=== PATIENT | male | born 1990 | race Caucasian/White ===

== ENCOUNTER 2021-12-23 20:09 | Inpatient (IN) | payer MEDICAID ==
[~2021-12-23] VITALS: Ht 170.2 cm; Wt 68.9 kg
[2021-12-23 20:09] VITALS: BP 148/88
--- NOTE | 2021-12-23 20:13 | NUR ---
[facility] TO ER BED 05.
[2021-12-23] MEDS ORDERED: ALBUTEROL 0.083% 2.5 MG/3 ML NEBU INH ONE (20:40)
[2021-12-23] MEDS ORDERED: methylPREDNISolone SS 125 MG/2 ML VIAL IVP ONE (20:40)
[2021-12-23] MEDS ORDERED: MAG SULF 2000 MG/WATER PREMIX 50 ML IV ONE (20:40)
[2021-12-23 21:02] LABS: BASOPHILS % (AUTO) 0.6 % (0.0-2.0); EOSINOPHILS # (AUTO) 0.6 K/uL (0-0.4); EOSINOPHILS % (AUTO) 7.7 % (0.0-4.0); HEMATOCRIT 46.6 % (36-52); HEMOGLOBIN 15.5 g/dL (12.0-18.0); LYMPHOCYTES # (AUTO) 1.8 K/uL (2.0-11.5); MEAN CORPUSCULAR HEMOGLOBIN 32 pg (27-31); MEAN CORPUSCULAR HGB CONC 33 g/dL (33-37); MEAN CORPUSCULAR VOLUME 94.8 fL (80-94); MONOCYTES # (AUTO) 0.7 K/uL (0.8-1.0); MONOCYTES % (AUTO) 9.3 % (1.7-9.3); NEUTROPHILS # (AUTO) 4.2 K/uL (1.8-7.7); NEUTROPHILS % (AUTO) 57.4 % (42.2-75.2); PLATELET COUNT (AUTO) 307 K/uL (140-450); RED BLOOD CELL COUNT(AUTO) 4.92 MIL/uL (4.20-6.10); RED CELL DISTRIBUTION WIDTH 13.7 % (11.6-13.7); WHITE BLOOD COUNT (AUTO) 7.2 K/uL (4.8-10.8)
[2021-12-23] MEDS ORDERED: LEVALBUTEROL 1.25 MG/0.5 ML NEBU INH ONE ×5 (21:05→22:11)
--- NOTE | 2021-12-23 21:11 | NUR ---
COVID AND FLU SWABS COLLECTED AND SENT TO LAB
[2021-12-23 21:24] LABS: ALBUMIN 3.8 g/dL (3.4-5.0); ANION GAP 10.6 (8-16); CARBON DIOXIDE 32.1 mmol/L (21-32); POTASSIUM 3.7 mmol/L (3.5-5.1); TOTAL BILIRUBIN 0.1 mg/dL (0.0-1.0)
--- NOTE | 2021-12-23 21:24 | NUR ---
31YR OLD MALE BIB EMS C/O ASTHMA EXCERBATION. PT HAS HX OF ASTHMA. SX STARTED X1 DAY AGO. PT IS A&OX4 HOB ELEVATED. RESP EVEN AND UNLABORED. 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 SP02 97% 2L NC. SKIN WARM AND DRY . DENIES CP IS SOB CURRENTLY. RT AT BEDSIDE. NKDA ASTHMA
[2021-12-23] MEDS ORDERED: NACL 0.9% 1,000 ML IV ONE (22:05)
--- NOTE | 2021-12-23 22:59 | NUR ---
PT ON A NEB TX . RT AT BEDSIDE. PT IS ADMITTED TO TELE. BED ASSIG GIVEN WILL TRANSPORT PT AFTER TX
[2021-12-23] MEDS ORDERED: PRON INH (23:09)
--- NOTE | 2021-12-23 23:21 | NUR ---
PATIENT BELONGINGS AND MED RECONCILE DONE
--- NOTE | 2021-12-24 00:09 | NUR ---
ADMISSION NOTE FOR 31 YEAR OLD MALE PATIENT UNDER THE CARE OF DOCTOR JAMAL CARTER FOR ASTHMA EXACERBATION.
--- NOTE | 2021-12-24 00:11 | NUR ---
Chart checked and completed.
--- NOTE | 2021-12-24 00:11 | NUR ---
Patient will be admitted to care of DR WALLER . Admited to TELE. Will go to [id number]. Belongings list completed. Report to IRVIN WU.
[2021-12-24] MEDS ORDERED: ACETAMINOPHEN 325 MG TAB PO PRN (00:55)
[2021-12-24] MEDS ORDERED: MORPHINE SULFATE 2 MG/ML SYR IVP PRN (00:55)
[2021-12-24] MEDS ORDERED: ONDANSETRON 4 MG/2 ML VIAL IM/IVP PRN (00:55)
[2021-12-24] MEDS ORDERED: SODIUM PHOS / POTASSIUM PHOS 1 PKT PDR PO PRN (00:55)
[2021-12-24] MEDS ORDERED: MAGNESIUM OXIDE 400 MG TAB PO PRN (00:55)
[2021-12-24] MEDS ORDERED: DOCUSATE SODIUM 100 MG GELCAP PO PRN (00:55)
[2021-12-24] MEDS ORDERED: HYDROcodone/APAP 5/325 MG 1 TAB TAB PO PRN (00:55)
[2021-12-24] MEDS ORDERED: POTASSIUM CHLORIDE 10 MEQ TABER PO PRN (00:55)
[2021-12-24] MEDS ORDERED: ALBUTEROL SULFATE/IPRATROPIU 3 ML SOL IH PRN ×2 (00:55→01:20)
[2021-12-24 02:00] VITALS: BP 108/67
[2021-12-24] MEDS: ALBUTEROL SULFATE/IPRATROPIU 3 ML SOL IH SCH ×5 (03:34→23:47)
[2021-12-24 04:00] VITALS: BP 120/70
[2021-12-24 06:49] LABS: BARBITURATE, URINE NEGATIVE ng/ml (NEG <=200); BENZODIAZEPINE, URINE NEGATIVE ng/mL (NEG <=200); CANNABINOID, URINE NEGATIVE ng/mL (NEG <=50); COCAINE, URINE NEGATIVE ng/mL (NEG <=300); OPIATE, URINE NEGATIVE ng/mL (NEG <=2000); PHENCYCLIDINE SCREEN,URINE NEGATIVE ng/mL (NEG <=25)
[2021-12-24] MEDS ORDERED: ALBUTEROL SULFATE/IPRATROPIU 3 ML SOL IH SCH (07:00)
--- NOTE | 2021-12-24 07:10 | NUR ---
SAW PT DURING ROUNDING. NO DISTRESS NOTED PT HAD EXP WHEEZES. GAVE BREATHING TX. PT TOLERATED WELL. WILL CONTINUE TO MONITOR. PT STATED HE IS DOING A LOT BETTER TODAY.
[2021-12-24 08:10] LABS: MAGNESIUM 1.8 mg/dL (1.8-2.4)
[2021-12-24] MEDS: LORATADINE 10 MG TAB PO SCH (08:19)
[2021-12-24] MEDS: PANTOPRAZOLE 40 MG TABEC PO SCH (08:20)
[2021-12-24 08:23] LABS: PHOSPHORUS 0.9 mg/dL (2.5-4.9)
--- NOTE | 2021-12-24 09:24 | NUR ---
PATIENT HAS BEEN SCREENED AND CATEGORIZED LOW NUTRITION RISK. PATIENT WILL BE SEEN WITHIN 7 DAYS OF ADMISSION. 12/30/21 REVIEWED BY BETSY RAVI RD Addendum: 12/25/21 at [address] FNS CONSULT RECEIVED FOR KAYLEEN 12 OR LOWER: NOT APPLICABLE
[2021-12-24 10:26] VITALS: BP 119/69
--- NOTE | 2021-12-24 13:04 | NUR ---
DC PLANNING SW MET WITH PT AT BEDSIDE TO COMPLETE ASSESSMENT. PT RESIDES IN A GROUND FLOOR APT ALONE AT THE ADDRESS LISTED ON FILE. PT IDENTIFIED AMANDA GUTIERREZ, FRIEND,[phone] EMERGENCY CONTACT. PT DECLINED TO ADD ADDITIONAL EMERGENCY CONTACT. PT REPORTS MEETING WITH PCP NEEDED, LAST VISIT; 1 YR AGO. PT DENIES TAKING MEDIATION AT THIS TIME HOWEVER, REPORTS USE OF INHALER, WHEN NEEDED. PT DENIES BARRIERS IN ACCESS TO NEEDED MEDICATIONS AND REPORTS RECEIVING MEDICATION FROM [facility] ON [address] IN [place], WHEN NEEDED. PT REPORTS BEING INDEPENDENT IN ALL ACTIVITIES AND DENIES USE OF DME. PT DENIES MH/SA HX. 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 PT REPORTS DC PLAN IS TO RETURN HOME WITH FAMILY PROVIDING TRANSPORTATION, WHEN MEDICALLY STABLE. PT DENIES HX OF HH SERVICES, DIABETES, DIALYSIS TX. Addendum: 12/24/21 at 1305 by Armida Gill SS Amended: Links added.
[2021-12-24] MEDS ORDERED: SODIUM PHOS / POTASSIUM PHOS 1 PKT PDR PO SCH (13:57)
[2021-12-24] MEDS: SERTRALINE 50 MG TAB PO SCH (14:00)
[2021-12-24 16:00] VITALS: BP 116/71
--- NOTE | 2021-12-24 19:10 | NUR ---
RECEIVED BEDSIDE REPORT FROM DAY SHIFT RN FOR CONTINUITY OF CARE. PT IS AAOX4. PT IS ON NC 2L. PT ON REGULAR DIET. PT HAS RIGHT AC 22 GAUGE SALINE LOCK. PT IS AMBULATORY. CALL LIGHT WITHIN REACH. PLAN OF CARE DISCUSSED. WILL CONTINUE TO MONITOR THE PT.
[2021-12-24 20:00] VITALS: BP 115/64
[2021-12-25] VITALS: BP 116/69
--- NOTE | 2021-12-25 01:25 | NUR ---
PT IS SLEEPING COMFORTABLY IN BED. PT IS NOT IN ANY ACUTE DISTRESS. BREATHING EVEN AND UNLABORED. WILL CONTINUE TO MONITOR THE PT.
--- NOTE | 2021-12-25 02:04 | NUR ---
OBSERVED PT. PT IS SLEEPING WITH NO ACUTE DISTRESS. VISIBLE RISE AND CHEST FALL. WILL CONTINUE TO MONITOR THE PT.
[2021-12-25 04:00] VITALS: BP 116/77
--- NOTE | 2021-12-25 04:10 | NUR ---
VITAL SIGNS TAKEN AND STABLE. PT REMOVED NC BECAUSE IT WAS MAKING HIS NOSE ITCH. PT IS SATING 94%. WILL CONTINUE TO MONITOR THE PT.
[2021-12-25] MEDS: ALBUTEROL SULFATE/IPRATROPIU 3 ML SOL IH SCH ×2 (05:38→07:08)
--- NOTE | 2021-12-25 07:28 | NUR ---
ENDORSED PT TO DAY SHIFT RN FOR CONTINUITY OF CARE. PT IS STABLE.
--- NOTE | 2021-12-25 07:30 | NUR ---
RECEIVED FROM REHAB RN NURSE FOR CONTINUITY OF CARE. PT IS AOX4 ABLE TO MAKE NEEDS KNOWN. RESPIRATIONS EVEN AND UNLABORED. ON ROOM AIR AND NO DISTRESS NOTED. SKIN IS WARM, DRY, AND INTACT. IV SITE INTACT AND PATENT. SALINE LOCKED. DENIES PAIN AT MOMENT. PLAN OF CARE DISCUSSED. SAFETY PRECAUTIONS IN PLACE. CALL LIGHT WITHIN REACH. WILL CONTINUE TO MONITOR. Addendum: 12/25/21 at 1537 by Sohail Drummond RN RN ON 2L NC O2 SATURATION AT 96%.
[2021-12-25 07:37] LABS: BASOPHILS % (AUTO) 0.4 % (0.0-2.0); EOSINOPHILS # (AUTO) 0.3 K/uL (0-0.4); EOSINOPHILS % (AUTO) 2.6 % (0.0-4.0); HEMATOCRIT 42.8 % (36-52); HEMOGLOBIN 14.1 g/dL (12.0-18.0); LYMPHOCYTES # (AUTO) 2.8 K/uL (2.0-11.5); LYMPHOCYTES % (AUTO) 23.7 % (20.5-51.1); MEAN CORPUSCULAR HEMOGLOBIN 32 pg (27-31); MEAN CORPUSCULAR HGB CONC 33 g/dL (33-37); MEAN CORPUSCULAR VOLUME 95.3 fL (80-94); MONOCYTES # (AUTO) 0.9 K/uL (0.8-1.0); MONOCYTES % (AUTO) 7.2 % (1.7-9.3); NEUTROPHILS # (AUTO) 7.9 K/uL (1.8-7.7); NEUTROPHILS % (AUTO) 66.1 % (42.2-75.2); PLATELET COUNT (AUTO) 317 K/uL (140-450); RED BLOOD CELL COUNT(AUTO) 4.49 MIL/uL (4.20-6.10); WHITE BLOOD COUNT (AUTO) 11.9 K/uL (4.8-10.8)
[2021-12-25 07:57] LABS: ANION GAP 10.7 (8-16); CARBON DIOXIDE 29.7 mmol/L (21-32); CREATININE 0.9 mg/dL (0.6-1.3); POTASSIUM 3.4 mmol/L (3.5-5.1)
[2021-12-25 08:00] VITALS: BP 118/74
[2021-12-25] MEDS: PANTOPRAZOLE 40 MG TABEC PO SCH (08:50)
[2021-12-25] MEDS: SERTRALINE 50 MG TAB PO SCH (08:51)
[2021-12-25] MEDS: LORATADINE 10 MG TAB PO SCH (08:51)
--- NOTE | 2021-12-25 09:45 | NUR ---
ALL SCHEDULED MEDS GIVEN. PT STABLE NO DISTRESS NOTED. WILL CONTINUE TO MONITOR.
--- NOTE | 2021-12-25 11:45 | NUR ---
CHECKED ON PATIENT. PT IS STABLE. NO DISTRESS NOTED. WILL CONTINUE TO MONITOR.
[2021-12-25 12:00] VITALS: BP 110/70
[2021-12-25] MEDS ORDERED: PRED20TA5 PO (12:54)
[2021-12-25] MEDS ORDERED: MONT10TA35 PO (12:54)
[2021-12-25] MEDS ORDERED: SERT-515 PO (12:54)
[2021-12-25] MEDS ORDERED: FLUT1DSK2 IH (12:54)
[2021-12-25] MEDS ORDERED: ALBU0.0912 IH (12:54)
[2021-12-25] MEDS ORDERED: LORA10TA19 PO (12:54)
[2021-12-25 14:33] VITALS: BP 110/70
--- NOTE | 2021-12-25 15:15 | NUR ---
ENDORSED DISCHARGE INSTRUCTIONS TO PATIENT. PT VERBALIZED UNDERSTANDING AND SIGNED DISCHARGED FORMS.
--- NOTE | 2021-12-25 15:30 | NUR ---
DISCHARGED OFF THE UNIT. IV CATHETER AND ID BAND REMOVED. PT ESCORTED TO FRONT LOBBY. PT WAS STABLE PRIOR TO DISCHARGE
[2021-12-26] MEDS ORDERED: methylPREDNISolone SS 40 MG/ML VIAL IVP SCH (05:00)
== END 2021-12-25 15:43 | disposition home or self-care (01) | DRG 133 ==
LOC: MED 20:09 → MTU 22:42
PROVIDERS: ADMIT Hospitalist; ATTEND Hospitalist
DX: J96.01 Acute respiratory failure with hypoxia (principal); E87.3 Alkalosis; E83.39 Other disorders of phosphorus metabolism; J45.901 Unspecified asthma with (acute) exacerbation; Z20.822 Contact with and (suspected) exposure to COVID-19; I10 Essential (primary) hypertension
CPT/HCPCS: 36415; 71045; 80048; 80053; 80305; 83735; 84100; 85025; 87081; 92526; 94640; 94644; 96365; 96366; 96375; 99285; J2930; J3475; J7612; J7613; Q0092

== ENCOUNTER 2022-01-13 23:05 | Observation (INO) | payer MEDICAID ==
[~2022-01-13] VITALS: Ht 170.2 cm; Wt 67.1 kg
[~2022-01-13 23:05] MED LIST: ALBU0.0912 IH; FLUT1DSK2 IH; LORA10TA19 PO; MONT10TA35 PO; PRED20TA5 PO; PRON INH; SERT-515 PO
[2022-01-13 23:09] VITALS: BP 120/70
--- NOTE | 2022-01-13 23:13 | NUR ---
TO LOBBY A/W BED AMBULATORY
--- NOTE | 2022-01-13 23:18 | NUR ---
pt to chair A
[2022-01-13] MEDS ORDERED: predniSONE 20 MG TAB PO ONE (23:25)
[2022-01-13] MEDS ORDERED: ALBUTEROL SULFATE/IPRATROPIU 3 ML SOL IH ONE (23:25)
[2022-01-13] MEDS ORDERED: ALBUTEROL 0.083% 2.5 MG/3 ML NEBU INH ONE (23:55)
[2022-01-14] MEDS ORDERED: ALBUTEROL 0.083% 2.5 MG/3 ML NEBU INH ONE (00:15)
--- NOTE | 2022-01-14 00:36 | NUR ---
PT TO BED #11
--- NOTE | 2022-01-14 00:46 | NUR ---
RT with patient performing breathing treatment.
[2022-01-14] MEDS ORDERED: methylPREDNISolone SS 125 MG in WATER STERILE 2 ML IV SCH (01:20)
[2022-01-14] MEDS ORDERED: WATER STERILE 10 ML MC ONE (01:40)
[2022-01-14] MEDS ORDERED: methylPREDNISolone SS 125 MG/2 ML VIAL ONE (01:40)
--- NOTE | 2022-01-14 01:46 | NUR ---
PT SITTING UP RESTING IN BED ON BEDSIDE SITE TECHNICIAN. RESP EVEN AND UNLABORED. PT SPEAKING IN FULL SENTENCES. NO DISTRESS NOTED. SP02 94% RA.
--- NOTE | 2022-01-14 01:48 | NUR ---
COVID SWAB COLLECTED AND SENT TO LAB
--- NOTE | 2022-01-14 01:50 | NUR ---
20G IV CATH PLACED R AC LABS OBTAINED AT BEDSIDE
--- NOTE | 2022-01-14 01:55 | NUR ---
Patient lying in bed, A/Ox4, chest rise and fall symmetrical, no c/o pain or s/s of distress.
--- NOTE | 2022-01-14 03:55 | NUR ---
Patient lying in bed, A/Ox4, chest rise and fall symmetrical, no c/o pain or s/s of distress.
--- NOTE | 2022-01-14 04:05 | NUR ---
Patient lying in bed, A/Ox4, chest rise and fall symmetrical, no c/o pain or s/s of distress.
--- NOTE | 2022-01-14 06:30 | NUR ---
Patient lying in bed, A/Ox4, chest rise and fall symmetrical, no c/o pain or s/s of distress.
[2022-01-14] MEDS ORDERED: ALBUTEROL SULFATE/IPRATROPIU 3 ML SOL IH SCH (07:00)
--- NOTE | 2022-01-14 07:15 | NUR ---
Change of shift report given to AM shift nurse Sarah WU. AM shift nurse Sarah RN verbalized understanding of report, no further questions.
[2022-01-14] MEDS ORDERED: ACETAMINOPHEN 325 MG TAB PO PRN (10:50)
[2022-01-14] MEDS ORDERED: ALBUTEROL SULFATE/IPRATROPIU 3 ML SOL IH PRN (10:50)
[2022-01-14] MEDS ORDERED: ONDANSETRON 4 MG/2 ML VIAL IVP PRN (10:50)
[2022-01-14] MEDS ORDERED: HYDROcodone/APAP 7.5/325 MG 1 TAB PO PRN (10:50)
[2022-01-14] MEDS: ALBUTEROL SULFATE/IPRATROPIU 3 ML SOL IH SCH ×2 (10:57→20:01)
[2022-01-14] MEDS ORDERED: ALBUTEROL 0.083% 2.5 MG/3 ML NEBU INH PRN (11:25)
[2022-01-14 11:43] LABS: BASOPHILS % (AUTO) 0.1 % (0.0-2.0); HEMATOCRIT 43.7 % (36-52); HEMOGLOBIN 14.9 g/dL (12.0-18.0); LYMPHOCYTES # (AUTO) 0.9 K/uL (2.0-11.5); LYMPHOCYTES % (AUTO) 8.4 % (20.5-51.1); MEAN CORPUSCULAR HEMOGLOBIN 32 pg (27-31); MEAN CORPUSCULAR HGB CONC 34 g/dL (33-37); MEAN CORPUSCULAR VOLUME 94.4 fL (80-94); MONOCYTES # (AUTO) 0.3 K/uL (0.8-1.0); MONOCYTES % (AUTO) 2.6 % (1.7-9.3); NEUTROPHILS # (AUTO) 9.6 K/uL (1.8-7.7); NEUTROPHILS % (AUTO) 88.9 % (42.2-75.2); PLATELET COUNT (AUTO) 300 K/uL (140-450); RED BLOOD CELL COUNT(AUTO) 4.63 MIL/uL (4.20-6.10); RED CELL DISTRIBUTION WIDTH 13.8 % (11.6-13.7); WHITE BLOOD COUNT (AUTO) 10.8 K/uL (4.8-10.8)
[2022-01-14] MEDS: NACL 0.9% 1,000 ML IV SCH (11:45)
[2022-01-14 11:46] LABS: ANION GAP 15.8 (8-16); CARBON DIOXIDE 27.9 mmol/L (21-32); CREATININE 1.1 mg/dL (0.6-1.3); POTASSIUM 4.7 mmol/L (3.5-5.1)
[2022-01-14 12:02] LABS: PROTHROMBIN TIME 10.8 secs (10.8-13.4)
[2022-01-14 12:20] LABS: AMYLASE 53 U/L (25-115); CHOL/HDL RATIO 2.1 (1-4.5); FREE T4 (FREE THYROXINE) 0.76 ng/dL (0.76-1.46); HDL CHOLESTEROL 87 mg/dL (40-60); LDL (CALC) 94 mg/dL (60-100); LIPASE 79 U/L (73-393); MAGNESIUM 1.6 mg/dL (1.8-2.4); PHOSPHORUS 3.7 mg/dL (2.5-4.9); THYROID STIMULATING HORMONE 0.25 uIU/mL (0.34-3.74); TRIGLYCERIDES 21 mg/dL (30-150)
[2022-01-14] MEDS: methylPREDNISolone SS 125 MG/2 ML VIAL IVP SCH ×2 (14:32→21:00)
[2022-01-14] MEDS ORDERED: POTASSIUM CHLORIDE 10 MEQ TABER PO PRN (15:05)
[2022-01-14] MEDS ORDERED: MAG SULF 2000 MG/WATER PREMIX 50 ML IV PRN (15:05)
[2022-01-14 17:12] LABS: APPEARANCE,URINE CLEAR (CLEAR); BILIRUBIN,URINE NEGATIVE (NEGATIVE); BLOOD, URINE NEGATIVE (NEGATIVE); COLOR,URINE YELLOW (YELLOW); LEUKOCYTE ESTERASE ,URINE NEGATIVE (NEGATIVE); NITRITE, URINE NEGATIVE (NEGATIVE); UGLUCOSE NEGATIVE (NEGATIVE)
[2022-01-14 17:27] LABS: BARBITURATE, URINE NEGATIVE ng/ml (NEG <=200); BENZODIAZEPINE, URINE NEGATIVE ng/mL (NEG <=200); CANNABINOID, URINE NEGATIVE ng/mL (NEG <=50); COCAINE, URINE NEGATIVE ng/mL (NEG <=300); OPIATE, URINE NEGATIVE ng/mL (NEG <=2000); PHENCYCLIDINE SCREEN,URINE NEGATIVE ng/mL (NEG <=25)
[2022-01-14 17:29] LABS: RBC,URINE 0-5 /HPF (0-5); WBC,URINE 0-5 /HPF (0-5)
[2022-01-14] MEDS: DOCUSATE SODIUM 100 MG GELCAP PO SCH (21:00)
--- NOTE | 2022-01-14 22:30 | NUR ---
Pt. to unit from ER, vss, aaox4, all admit questions answered. Pt. oriented to room and made comfortable, call light in reach.
--- NOTE | 2022-01-14 22:40 | NUR ---
Patient will be admitted to care of DO MARCELINO. Admited to TELEMETRY. Will go to room 111B. Belongings list completed. Report to JAZMIN BAUGH. TRANSFER OF CARE.
[2022-01-14 23:36] VITALS: BP 146/76
[2022-01-15 05:04] VITALS: BP 110/67
[2022-01-15] MEDS: methylPREDNISolone SS 125 MG/2 ML VIAL IVP SCH (05:11)
--- NOTE | 2022-01-15 06:14 | NUR ---
Pt. needs met slept well, no acute resp. distress, room air pox wnl
[2022-01-15] MEDS: ALBUTEROL SULFATE/IPRATROPIU 3 ML SOL IH SCH (06:42)
[2022-01-15] MEDS: NACL 0.9% 1,000 ML IV SCH (06:50)
[2022-01-15 07:09] LABS: BASOPHILS # (AUTO) 0.1 K/uL (0.00-0.22); BASOPHILS % (AUTO) 0.4 % (0.0-2.0); HEMATOCRIT 44.3 % (36-52); HEMOGLOBIN 14.6 g/dL (12.0-18.0); LYMPHOCYTES # (AUTO) 0.8 K/uL (2.0-11.5); LYMPHOCYTES % (AUTO) 4.4 % (20.5-51.1); MEAN CORPUSCULAR HEMOGLOBIN 31 pg (27-31); MEAN CORPUSCULAR HGB CONC 33 g/dL (33-37); MEAN CORPUSCULAR VOLUME 95.1 fL (80-94); MONOCYTES # (AUTO) 0.6 K/uL (0.8-1.0); MONOCYTES % (AUTO) 3.3 % (1.7-9.3); NEUTROPHILS % (AUTO) 91.9 % (42.2-75.2); PLATELET COUNT (AUTO) 301 K/uL (140-450); RED BLOOD CELL COUNT(AUTO) 4.65 MIL/uL (4.20-6.10); RED CELL DISTRIBUTION WIDTH 13.7 % (11.6-13.7); WHITE BLOOD COUNT (AUTO) 18.5 K/uL (4.8-10.8)
[2022-01-15 07:13] LABS: ANION GAP 7.3 (8-16); CARBON DIOXIDE 27.2 mmol/L (21-32); CREATININE 0.9 mg/dL (0.6-1.3); POTASSIUM 4.5 mmol/L (3.5-5.1)
--- NOTE | 2022-01-15 07:15 | NUR ---
RECEIVED PT ON [facility] 400,RR14,+5, 26% WHEELS ARE LOCKED, AMBUBAG AT BEDSIDE, ALARMS ARE SET AND AUDIBLE. PLUGGED INTO RED OUTLET. EQUAL CHEST RISE, SATURATION 98%, PT RESTING. WILL CONTINUE TO MONITOR. Addendum: 01/15/22 at 0751 by Ines Wilkerson RT WRONG PT
[2022-01-15 07:26] LABS: PHOSPHORUS 3.1 mg/dL (2.5-4.9)
--- NOTE | 2022-01-15 07:27 | NUR ---
GOT REPORT FROM THE NIGHT NURSE, PT SLEEPING IV FLUID INFUSING , NO SOB. [id number]
--- NOTE | 2022-01-15 07:30 | NUR ---
PT REFUSED BREATHING TREATMENT AT THIS TIME.
[2022-01-15 08:00] VITALS: BP 112/80
[2022-01-15] MEDS ORDERED: PANTOPRAZOLE 40 MG INJ VIAL IVP SCH (09:00)
[2022-01-15] MEDS: DOCUSATE SODIUM 100 MG GELCAP PO SCH (09:13)
--- NOTE | 2022-01-15 09:25 | NUR ---
PATIENT HAS BEEN SCREENED AND CATEGORIZED LOW NUTRITION RISK. PATIENT WILL BE SEEN WITHIN 7 DAYS OF ADMISSION. 01/21/[address]
[2022-01-15] MEDS ORDERED: ALBU0.0912 IH (11:11)
[2022-01-15] MEDS ORDERED: PRED10TA5 PO (11:11)
[2022-01-15] MEDS ORDERED: LORA10TA19 PO (11:11)
[2022-01-15] MEDS ORDERED: MONT10TA35 PO (11:11)
[2022-01-15] MEDS ORDERED: FLUT1DSK2 IH (11:11)
[2022-01-15] MEDS ORDERED: PRON INH (11:11)
[2022-01-15] MEDS ORDERED: SERT-515 PO (11:11)
[2022-01-15 12:00] VITALS: BP 112/80
[2022-01-15 12:26] VITALS: BP 112/80
[2022-01-15] MEDS ORDERED: methylPREDNISolone SS 40 MG/ML VIAL IVP SCH (13:00)
--- NOTE | 2022-01-15 13:20 | NUR ---
pt discharged home discharge instruction given, iv and id band removed , pt left unit without comfort. [email or web address]
== END 2022-01-15 13:35 | disposition home or self-care (01) ==
LOC: MED 23:05 → MTU 01-14 02:03
DX: J45.51 Severe persistent asthma with (acute) exacerbation (principal); Z20.822 Contact with and (suspected) exposure to COVID-19; E87.1 Hypo-osmolality and hyponatremia; D72.829 Elevated white blood cell count, unspecified; E83.42 Hypomagnesemia; E86.0 Dehydration; Z79.899 Other long term (current) drug therapy
CPT/HCPCS: 36415; 71045; 80048; 80061; 80305; 81001; 82150; 83036; 83605; 83690; 83735; 83880; 84100; 84439; 84443; 84484; 85025; 85610; 85730; 87040; 87081; 87426; 94640; 94760; 96361; 96374; 96375; 96376; 99284; C9113; G0378; J2930; J7512; J7613